=== PATIENT | male | born 1955 ===

== ENCOUNTER 2017-06-27 09:16 | Day surgery (SDC) | payer MEDICARE, OTHER ==
[~2017-06-27 09:16] MED LIST: LACTATED RINGERS 1,000 ML IV.SOLN IV ONE; LIDOCAINE HCL/PF 2% 100 MG/5 ML VIAL IJ ONE; PROPOFOL 500 MG/50 ML VIAL IV ONE; SALINE FLUSH 10 ML DISP.SYRIN IVF ONE
--- NOTE | 2017-06-27 15:25 | GI Report ---
REFERRING PHYSICIAN: Dr. Dave Johnson HEAD OF ETHICS AND COMPLIANCE: Bharath Dobbs MD PROCEDURE MEDICATION: Propofol as per anesthesia. INDICATIONS: Patient is a 61-year-old man who has had a kidney transplant. He does have central obesity. He is on azathioprine. He is on Sandimmune. He has a family history of his father with colon cancer. He is referred a high risk surveillance. PROCEDURE PERFORMED: Colonoscopy with polypectomy. PROCEDURE: An Olympus video colonoscope was advanced to the rectum and slowly advanced to the cecum. The appendiceal orifice and terminal ileum were normal. At the base of the cecum, there was a 2 mm polyp that was cold biopsy removed and about 3 cm above the ileocecal valve, there was a 4 mm polyp removed with electrocautery and submitted to pathology. On the remaining part of the ascending colon, no additional lesions were noted. In the mid-transverse colon at about 75 cm, the patient had a 3 to 4 mm polyp removed with a cold snare. Descending colon with some redundancy. No additional intraluminal lesions noted. Retroflexion of the rectum was normal. Patient tolerated the procedure well. FINDINGS: Three polyps removed, one in the transverse and 1 in the cecum and proximal ascending, near the cecum. RECOMMENDATIONS: Pending the pathology of the polyps, would consider re-looking at his colon within 3 to 5 years. cc: Dr. Dave GARNER
== END 2017-06-27 09:17 ==
LOC: OPSURG 09:16
PROVIDERS: ATTEND Internal Medicine Gastroenterology
DX: Z12.11 Encounter for screening for malignant neoplasm of colon (principal); D12.2 Benign neoplasm of ascending colon; D12.3 Benign neoplasm of transverse colon; Z80.0 Family history of malignant neoplasm of digestive organs
CPT/HCPCS: 88305; J2001; J2704; J7120; 45385; S1016

== ENCOUNTER 2017-12-30 08:30 | Outpatient (CLI) | payer MEDICARE, OTHER ==
[2017-12-30 08:48] LABS: BASOPHILS % 0.9 (0.0-1.5); EOSINOPHILS % 4.8 % (0.0-6.8); MEAN CORPUSCULAR HEMOGLOBIN 37.1 pg (28.0-34.0); MEAN CORPUSCULAR VOLUME 108.3 fl (80.0-100.0); MONOCYTES % 6.8 % (0.0-11.0); NEUTROPHILS # 2.3 # k/uL (1.4-7.7)
[2017-12-30 09:57] LABS: eGFR (African) 56; eGFR (Non-African) 47
== END 2017-12-30 08:32 ==
LOC: LAB 08:30
PROVIDERS: ATTEND Internal Medicine Nephrology
DX: I10 Essential (primary) hypertension (principal); M10.00 Idiopathic gout, unspecified site; G47.30 Sleep apnea, unspecified; M19.90 Unspecified osteoarthritis, unspecified site; E78.2 Mixed hyperlipidemia; R19.7 Diarrhea, unspecified; Z94.0 Kidney transplant status; B02.22 Postherpetic trigeminal neuralgia
CPT/HCPCS: 36415; 80053; 80061; 84550; 85025